=== PATIENT | female | born 1960 | race Caucasian/White ===

== ENCOUNTER 2021-10-29 12:38 | Emergency (ER) | payer MEDICARE, SELFPAY ==
[~2021-10-29] VITALS: Ht 144.8 cm; Wt 49.9 kg
[~2021-10-29 12:38] MED LIST: ALPR0.5T PO; ASCO500T20 PO; CALC-1155 PO; CEL20 PO; COLL90OI2 TP; CYCL10TA24 PO; FURO-149 PO; GABA-531 PO; METO25TA6 PO; MORP30TA59 PO; MULT-1117 PO; NORT10CA PO; OMEP20CA15 PO; POTA-80 PO; PRED10TA PO; SIMV10TA97 PO; TRAM50TA92 PO; WARF3TAB PO; WARF4TAB2 PO; ZIN220 PO
--- NOTE | 2021-10-29 12:52 | NUR ---
Patient to ED at this time with c/o left lower extremity pain for four days. patient lives at home with [facility] services. states she developed left hip pain that shoots down leg intermittently. patient has history of taking morphine and norco. [facility] notified emt that recently decreased her pain medications and patient was not aware of this. Patient's pain is 10/10 at this time. waiting to see
[2021-10-29] MEDS ORDERED: HYDROmorphone 1 MG/ML INJ. CARTRIDGE IM ONE (13:15)
[2021-10-29 13:25] VITALS: BP_SYST 142
--- NOTE | 2021-10-29 13:47 | NUR ---
xray completed at this time. dilaudid 1mg IM administered
--- NOTE | 2021-10-29 14:16 | NUR ---
Patient denies pain at this time. comfort measures implemented
--- NOTE | 2021-10-29 14:39 | NUR ---
at bedside to speak with
[2021-10-29 16:39] LABS: HEMATOCRIT 33.3 % (36-48); HEMOGLOBIN 10.3 g/dL (12.0-16.0); MEAN CORPUSCULAR HEMOGLOBIN 21 pg (27-31); MEAN CORPUSCULAR HGB CONC 31 % (32-36); MEAN CORPUSCULAR VOLUME 67 fL (79.0-98.0); PLATELET COUNT (AUTO) 175 K/uL (130-430); RED BLOOD CELL COUNT(AUTO) 4.95 MIL/uL (4.2-6.2); WHITE BLOOD COUNT (AUTO) 9.7 K/uL (4.8-10.8)
[2021-10-29 16:44] LABS: CALCIUM 7.9 mg/dL (8.4-11.0); CREATININE 0.48 mg/dL (0.55-1.30); POTASSIUM 3.5 mmol/L (3.5-5.1)
[2021-10-29 16:50] LABS: ALBUMIN 2.9 g/dL (3.4-4.8); TOTAL BILIRUBIN 0.3 mg/dL (0.0-1.0)
[2021-10-29 16:54] LABS: ATYPICAL LYMPHOCYTES % 15 % (0-0); BAND % (MANUAL) 0 % (0-6); BASOPHILS % (MANUAL) 0 % (0-2); EOSINOPHILS % (MANUAL) 0 % (0-7); LYMPHOCYTES % (MANUAL) 46 % (20-46); MONOCYTES % (MANUAL) 0 % (0-11)
--- NOTE | 2021-10-29 18:01 | NUR ---
Covid test collected and sent. patient condition goes unchanged, patient resting comfortably, will continue to monitor the patient. patient updated on plan of care. waiting to see surgeon
--- NOTE | 2021-10-29 18:12 | NUR ---
norvasc 10mg po given at this time for htn.
[2021-10-29] MEDS ORDERED: HYDROmorphone 1 MG/ML INJ. CARTRIDGE IVP ONE (18:15)
[2021-10-29] MEDS ORDERED: amLODIPine BESYLATE 10 MG TABLET PO ONE ×2 (18:15)
--- NOTE | 2021-10-29 18:33 | NUR ---
patient adminsitered pain meds and b/p meds at this time to clear for transport. patient states she took her lopressor this am
--- NOTE | 2021-10-29 18:49 | NUR ---
[place] at [facility],
--- NOTE | 2021-10-29 18:55 | NUR ---
Patient transported to [facility] at this time
[2021-10-29 18:58] VITALS: BP_SYST 124
--- NOTE | 2021-10-29 19:01 | NUR ---
Patient to be transferred to [facility]. Is being transferred due to higher level of care. Receiving facility has accepting physician and available space. ER physician has signed transfer form. Patient or responsible democrat has agreed to transfer and signed form. Patient belongings inventoried and will be sent with patient. Copy of nursing notes, lab reports, EKG, Physicians Orders and X-rays to be sent with patient. Report called to Claudia
== END 2021-10-29 18:58 | disposition short-term general hospital (02) ==
LOC: SED 12:38
DX: M25.551 Pain in right hip (principal); M25.552 Pain in left hip; Z20.822 Contact with and (suspected) exposure to COVID-19; Z79.899 Other long term (current) drug therapy; I10 Essential (primary) hypertension; K21.9 Gastro-esophageal reflux disease without esophagitis; F32.9 Major depressive disorder, single episode, unspecified; E78.5 Hyperlipidemia, unspecified; Z88.5 Allergy status to narcotic agent
CPT/HCPCS: 36415; 72170; 73552; 73560; 80053; 85007; 85027; 87426; 96372; 96374; 99285; J1170

== ENCOUNTER 2022-11-14 13:18 | Emergency (ER) | payer MEDICARE ==
[~2022-11-14] VITALS: Ht 157.5 cm; Wt 59.0 kg
[2022-11-14 13:49] VITALS: BP_SYST 123
--- NOTE | 2022-11-14 13:50 | NUR ---
Patient triaged. VSS and patient appears in no acute distress at this time. Accompanied by EMT'S , awaiting available bed, and MD notified of need for MSE.
--- NOTE | 2022-11-14 16:09 | NUR ---
PT COMES IN WITH RT ARM BRUISING PURPLE/BLUE IN COLOR. STATES SHE HAD BLOOD DRAW 3 DAYS AGO ROUTINE WORKUP BECAUSE SHE TAKES COUMADIN QDAY. PT DENIES ANY N/V/D. PT DENIES ANY SOB OR CP. DNEIS ANY NUMBNESS/TINGLING. +CMS.
--- NOTE | 2022-11-14 17:24 | NUR ---
Patient given written and verbal discharge instructions and verbalizes understanding. ER MD discussed with patient the results and treatment provided. Patient in stable condition. ID arm band removed.
[2022-11-14 17:29] VITALS: BP_SYST 123
== END 2022-11-14 17:24 | disposition home or self-care (01) ==
LOC: SED 13:18
DX: S40.021A Contusion of right upper arm, initial encounter (principal); K21.9 Gastro-esophageal reflux disease without esophagitis; I10 Essential (primary) hypertension; E78.5 Hyperlipidemia, unspecified; Z88.5 Allergy status to narcotic agent; Z79.899 Other long term (current) drug therapy; X58.XXXA Exposure to other specified factors, initial encounter; Y93.89 Activity, other specified; Y92.89 Other specified places as the place of occurrence of the external cause; Y99.8 Other external cause status
CPT/HCPCS: 99283

== ENCOUNTER 2023-03-08 12:37 | Emergency (ER) | payer MEDICARE ==
[~2023-03-08] VITALS: Ht 142.2 cm; Wt 68.0 kg
[2023-03-08 12:43] VITALS: BP_SYST 143
[2023-03-08] MEDS ORDERED: cefTRIAXone 1 GM IVPB PREMIX 50 ML IV ONE (12:45)
[2023-03-08] MEDS ORDERED: NS 1000 ML IV.SOLN IV ONE (12:45)
--- NOTE | 2023-03-08 13:00 | NUR ---
62 yo/f w biba from home w c/o increasing fatigue, sob and fevers x3 days. pt alert but sob, drowsy and fatigue will not answer all questions, assessment limited at this time. pt tachycardic and tachypneic otherwise vss. denies chest pain, abdominal pain, n/v/d. pmh: htn, thyroid dz, copd, dm, asthma
[2023-03-08 13:06] LABS: BASOPHILS # (AUTO) 0.1 K/uL (0.0-0.2); BASOPHILS % (AUTO) 0.6 % (0.0-2.0); EOSINOPHILS % (AUTO) 0.4 % (0.0-4.0); HEMATOCRIT 36.3 % (36-48); LYMPHOCYTES # (AUTO) 3.7 K/uL (1.0-5.5); LYMPHOCYTES % (AUTO) 28.3 % (20.5-51.5); MEAN CORPUSCULAR HEMOGLOBIN 21 pg (27-31); MEAN CORPUSCULAR HGB CONC 30 % (32-36); MEAN CORPUSCULAR VOLUME 69 fL (79.0-98.0); MONOCYTES # (AUTO) 0.4 K/uL (0.0-1.0); MONOCYTES % (AUTO) 3.3 % (1.7-9.3); NEUTROPHILS # (AUTO) 8.9 K/uL (1.8-7.7); NEUTROPHILS % (AUTO) 67.4 % (40.0-70.0); PLATELET COUNT (AUTO) 211 K/uL (130-430); RED BLOOD CELL COUNT(AUTO) 5.24 MIL/uL (4.2-6.2); RED CELL DISTRIBUTION WIDTH 19.8 % (9.0-15.0); WHITE BLOOD COUNT (AUTO) 13.2 K/uL (4.8-10.8)
[2023-03-08 13:39] LABS: ALANINE AMINOTRANSFERASE 25 U/L (12-78); ALBUMIN 3.4 g/dL (3.4-4.8); ANION GAP 11 (5-15); ASPARTATE AMINOTRANSFERASE 17 U/L (10-37); CALCIUM 8.5 mg/dL (8.4-11.0); CHLORIDE 100 mmol/L (98-107); CREATININE 0.56 mg/dL (0.55-1.30); GFR AFRICAN AMERICAN 140 mL/min (>90); GLUCOSE 94 mg/dL (74-106); TOTAL BILIRUBIN 0.7 mg/dL (0.0-1.0); UREA NITROGEN, BLOOD 12 mg/dL (8-21)
[2023-03-08] MEDS ORDERED: POTASSIUM CHLORIDE 20 MEQ TAB.PRT.SR PO ONE (14:00)
[2023-03-08 14:21] LABS: BILIRUBIN,URINE NEGATIVE (NEGATIVE); BLOOD, URINE NEGATIVE (NEGATIVE); COLOR,URINE YELLOW (YELLOW); GLUCOSE,URINE NEGATIVE (NEGATIVE); KETONES,URINE NEGATIVE (NEGATIVE); LEUKOCYTE ESTERASE ,URINE 2+ (NEGATIVE); NITRITE, URINE POSITIVE (NEGATIVE); PROTEIN URINE NEGATIVE (NEGATIVE); UROBILINOGEN,URINE 0.2 (0.2-1.0)
[2023-03-08 14:25] LABS: CLARITY/URINE HAZY (CLEAR)
[2023-03-08 14:26] LABS: BACTERIA,URINE MANY /HPF (None Seen); MUCUS,URINE None Seen /LPF (None Seen); RBC,URINE 0-3 /HPF (0-3); WBC,URINE 20-50 /HPF (0-3)
--- NOTE | 2023-03-08 14:29 | NUR ---
pt o2 sat 88% on RA placed on 2L nc O2 sat now 95%
--- NOTE | 2023-03-08 15:02 | NUR ---
pt reports mild leg pain BL knees, reports its chronic, assisted to reposition for comfort pt reports feeling pain relief w positioning.
[2023-03-08] MEDS ORDERED: METOPROLOL TARTRATE 25 MG TABLET PO ONE (15:30)
--- NOTE | 2023-03-08 16:16 | NUR ---
pt resting w eyes closed, breathing even and unlabred, nad noted
--- NOTE | 2023-03-08 18:26 | NUR ---
ETA 1930, VERIFIES TRANSPORT COAL SCREENER. FOR REPORT [phone] TO BP ROOM 4007
--- NOTE | 2023-03-08 18:38 | NUR ---
Patient to be transferred to [facility] [phone]. Is being transferred due to higher level of care. Receiving facility has accepting physician and available space. ER physician has signed transfer form. Patient or responsible constitution party has agreed to transfer and signed form. Patient belongings inventoried and will be sent with patient. Copy of nursing notes, lab reports, EKG, Physicians Orders and X-rays to be sent with patient. Report called to mar piña at receiving facility. Receiving physician is rick. [facility] ambulance service has been called for transfer. ETA is 1930.
--- NOTE | 2023-03-08 19:31 | NUR ---
PT REPORT TO SANTIAGO ORONA.
--- NOTE | 2023-03-08 19:33 | NUR ---
MICHAEL RICCI TO BE UPDATED WHEN PT IS TX TO [facility].
[2023-03-08] MEDS ORDERED: DEXTROSE 50% JECT 50 ML DISP.SYRIN IVP ONE (20:00)
[2023-03-08] MEDS ORDERED: DEXTROSE 50% JECT 50 ML DISP.SYRIN ONE (20:05)
--- NOTE | 2023-03-08 20:17 | NUR ---
ACCU-CHECK 154 PT READIED FOR DC
--- NOTE | 2023-03-08 20:25 | NUR ---
Note undone in ED - 03/08/23 at 2025 by [email or web address] Patient to be transferred to [place]. Is being transferred due to higher level of care. Receiving facility has accepting physician and available space. ER physician has signed transfer form. Patient or responsible green party has agreed to transfer and signed form. Patient belongings inventoried and will be sent with patient. Copy of nursing notes, lab reports, EKG, Physicians Orders and X-rays to be sent with patient. Report called to KWAKU LIU at receiving facility. ambulance service has been called for transfer.
--- NOTE | 2023-03-08 20:26 | NUR ---
PT TRANSFERED TO [facility]. PT VSS UPON TRANSFER. PT VERBALIZED UNDERSTANDING OF TRANSFER.
[2023-03-08 21:14] VITALS: BP_SYST 141
== END 2023-03-08 20:26 | disposition short-term general hospital (02) ==
LOC: SED 12:37
DX: N39.0 Urinary tract infection, site not specified (principal); I48.91 Unspecified atrial fibrillation; R50.9 Fever, unspecified; R53.1 Weakness; I11.0 Hypertensive heart disease with heart failure; I50.9 Heart failure, unspecified; K21.9 Gastro-esophageal reflux disease without esophagitis; Z88.5 Allergy status to narcotic agent; Z79.899 Other long term (current) drug therapy; Z20.822 Contact with and (suspected) exposure to COVID-19
CPT/HCPCS: 99285; 96365; 71045; 87426; 80053; 81000; 85025; 87040; 87086; 84484; 36415; 93005; 83605; 87804 ×2; J0696

== ENCOUNTER 2023-07-09 14:34 | Emergency (ER) | payer MEDICARE ==
[~2023-07-09] VITALS: Ht 157.5 cm; Wt 59.9 kg
[2023-07-09 14:50] VITALS: BP_SYST 101; PULSE 82; RESP 18; TEMP 97.8; O2SAT 96
[2023-07-09] MEDS ORDERED: NACL 0.9% 1,000 ML IV ONE ×2 (15:15→18:00)
[2023-07-09 16:12] LABS: HEMATOCRIT 32.6 % (36-48); HEMOGLOBIN 10.1 g/dL (12.0-16.0); MEAN CORPUSCULAR HEMOGLOBIN 21 pg (27-31); MEAN CORPUSCULAR HGB CONC 31 % (32-36); MEAN CORPUSCULAR VOLUME 67 fL (79.0-98.0); PLATELET COUNT (AUTO) 261 K/uL (130-430); RED BLOOD CELL COUNT(AUTO) 4.84 MIL/uL (4.2-6.2); RED CELL DISTRIBUTION WIDTH 21.3 % (9.0-15.0); WHITE BLOOD COUNT (AUTO) 18.6 K/uL (4.8-10.8)
[2023-07-09 16:13] LABS: ALANINE AMINOTRANSFERASE 16 U/L (12-78); ALBUMIN 2.9 g/dL (3.4-4.8); ANION GAP 9 (5-15); ASPARTATE AMINOTRANSFERASE 13 U/L (10-37); CARBON DIOXIDE 32 mmol/L (23-29); CHLORIDE 100 mmol/L (98-107); CREATININE 1.03 mg/dL (0.55-1.30); GFR AFRICAN AMERICAN 69 mL/min (>90); GLUCOSE 141 mg/dL (74-106); SODIUM SERUM 141 mmol/L (136-145); TOTAL BILIRUBIN 0.5 mg/dL (0.0-1.0); TOTAL PROTEIN, SERUM 6.6 g/dL (6.4-8.3); UREA NITROGEN, BLOOD 15 mg/dL (8-21)
[2023-07-09 16:15] LABS: GFR NON AFRICAN-AMERICAN 57 mL/min (>90)
[2023-07-09 16:17] LABS: POTASSIUM 2.9 mmol/L (3.5-5.1)
[2023-07-09 16:20] LABS: INFLUENZA TYPE A Negative (NEGATIVE); INFLUENZA TYPE B NEGATIVE (NEGATIVE)
[2023-07-09] MEDS ORDERED: POTASSIUM CHLORIDE 20 MEQ TAB.PRT.SR PO ONE (16:30)
[2023-07-09] MEDS ORDERED: KCL 20 mEq in 100 mL (PREMIX) 100 ML IV ONE (16:30)
[2023-07-09 16:37] LABS: PHOSPHORUS 5.2 mg/dL (2.7-4.5)
[2023-07-09] MEDS ORDERED: cefTRIAXone 1 GM in D5W 50 ML IV ONE (17:15)
[2023-07-09] MEDS ORDERED: AZITHROMYCIN 500 MG in NS 250 ML IV ONE (17:15)
[2023-07-09 17:30] LABS: BAND % (MANUAL) 1 % (0-6); BASOPHILS % (MANUAL) 0 % (0-2); EOSINOPHILS % (MANUAL) 0 % (0-7); LYMPHOCYTES % (MANUAL) 24 % (20-46); MONOCYTES % (MANUAL) 2 % (0-11); PLATELET ESTIMATE ADEQUATE (ADEQUATE)
[2023-07-09 17:31] LABS: ANISOCYTOSIS 2+; HYPOCHROMASIA 1+; OVALOCYTES MODERATE
[2023-07-09] MEDS ORDERED: cefTRIAXone 1 GM VIAL ONE (18:10)
[2023-07-09] MEDS ORDERED: AZITHROMYCIN 500 MG/VIAL (ZITHROMAX) IV ONE (18:27)
[2023-07-09 19:43] LABS: BILIRUBIN,URINE NEGATIVE (NEGATIVE); COLOR,URINE YELLOW (YELLOW); GLUCOSE,URINE NEGATIVE (NEGATIVE); KETONES,URINE NEGATIVE (NEGATIVE); LEUKOCYTE ESTERASE ,URINE 1+ (NEGATIVE); NITRITE, URINE NEGATIVE (NEGATIVE); PROTEIN URINE 1+ (NEGATIVE); UROBILINOGEN,URINE 0.2 (0.2-1.0)
[2023-07-09 19:48] LABS: BLOOD, URINE TRACE (NEGATIVE); CLARITY/URINE HAZY (CLEAR)
[2023-07-09 21:03] LABS: BACTERIA,URINE MANY /HPF (None Seen)
[2023-07-09 21:15] VITALS: BP_SYST 106; PULSE 90; RESP 18; TEMP 98.7; O2SAT 99
== END 2023-07-09 21:06 | disposition short-term general hospital (02) ==
LOC: SED 14:34
DX: J18.1 Lobar pneumonia, unspecified organism (principal); R09.02 Hypoxemia; R55 Syncope and collapse; E87.6 Hypokalemia; R53.1 Weakness; R07.9 Chest pain, unspecified; I11.0 Hypertensive heart disease with heart failure; I50.9 Heart failure, unspecified; K21.9 Gastro-esophageal reflux disease without esophagitis; Z88.5 Allergy status to narcotic agent; Z79.899 Other long term (current) drug therapy; Z20.822 Contact with and (suspected) exposure to COVID-19
CPT/HCPCS: 99291; 96365; 93971; 71045; 96361; 96366; 87426; 85027; 80053; 81001; 82962; 83880; 83735; 84100; 85007; 87040; 87086; 84484; 36415; 96368; 83605; 87804 ×2; 81000; 81015; J0456; J0696; J3480; J7030; 93005

== ENCOUNTER 2023-11-14 02:50 | Inpatient (IN) | payer MEDICARE ==
[~2023-11-14] VITALS: Ht 149.9 cm; Wt 60.3 kg
[2023-11-14] VITALS (7 sets, daily range): BP systolic 139–169; PULSE 60–97; RESP 14–20; TEMP 97–98.2; O2SAT 93–100
[2023-11-14] MEDS: IPRATROPIUM/ALBUTEROL SULFATE 3 ML AMPUL.NEB (DUONEB) INH ONE (03:39)
[2023-11-14 04:01] LABS: ANION GAP 9 (5-15); BASOPHILS % (AUTO) 0.3 % (0.0-2.0); CALCIUM 8.8 mg/dL (8.4-11.0); CARBON DIOXIDE 27 mmol/L (23-29); CHLORIDE 108 mmol/L (98-107); CREATININE 0.54 mg/dL (0.55-1.30); EOSINOPHILS % (AUTO) 0.4 % (0.0-4.0); GFR AFRICAN AMERICAN 146 mL/min (>90); GLUCOSE 134 mg/dL (74-106); HEMOGLOBIN 8.3 g/dL (12.0-16.0); LYMPHOCYTES # (AUTO) 6.7 K/uL (1.0-5.5); LYMPHOCYTES % (AUTO) 56.5 % (20.5-51.5); MEAN CORPUSCULAR HEMOGLOBIN 19 pg (27-31); MEAN CORPUSCULAR HGB CONC 30 % (32-36); MEAN CORPUSCULAR VOLUME 63 fL (79.0-98.0); MONOCYTES # (AUTO) 0.7 K/uL (0.0-1.0); MONOCYTES % (AUTO) 5.6 % (1.7-9.3); NEUTROPHILS # (AUTO) 4.4 K/uL (1.8-7.7); NEUTROPHILS % (AUTO) 37.2 % (40.0-70.0); PLATELET COUNT (AUTO) 216 K/uL (130-430); POTASSIUM 3.2 mmol/L (3.5-5.1); RED CELL DISTRIBUTION WIDTH 19.9 % (9.0-15.0); SODIUM SERUM 144 mmol/L (136-145); UREA NITROGEN, BLOOD 20 mg/dL (8-21); WHITE BLOOD COUNT (AUTO) 11.9 K/uL (4.8-10.8)
[2023-11-14] MEDS: methylPREDNISolone SOD SUCC/PF 62.5 MG/ML VIAL IVP ONE (04:03)
[2023-11-14 04:05] LABS: HEMATOCRIT 24.9 % (36-48); RED BLOOD CELL COUNT(AUTO) 2.49 MIL/uL (4.2-6.2)
[2023-11-14 04:06] LABS: GFR NON AFRICAN-AMERICAN 120 mL/min (>90)
[2023-11-14 04:10] LABS: BLOOD GAS PCO2 35.1 mmHg (35.0-45.0); BLOOD GAS PH 7.434 (7.350-7.450)
[2023-11-14 04:11] LABS: ABG O2 SAT% ESTIMATE 85.2 % (94.0-100.0); BLOOD GAS BASE EXCESS -0.7 mmol/L (-3.0-3.0); BLOOD GAS PO2 47.7 mmHg (75.0-100.0)
[2023-11-14 04:12] LABS: ALLEN'S TEST POSITIVE (P)
[2023-11-14 04:14] LABS: INR 2.1 (0.8-1.2); PROTHROMBIN TIME 20.7 SECS (9.5-12.5)
[2023-11-14] MEDS ORDERED: POTASSIUM CHLORIDE 20 MEQ/PKT PACKET PO ONE (04:30)
[2023-11-14 04:40] LABS: INFLUENZA TYPE A Negative (NEGATIVE)
[2023-11-14 04:42] LABS: INFLUENZA TYPE B POSITIVE (NEGATIVE)
[2023-11-14] MEDS: POTASSIUM CHLORIDE 20 MEQ TABLET.ER PO ONE (05:19)
[2023-11-14] MEDS: FUROSEMIDE 40 MG/4 ML VIAL IVP ONE (05:26)
[2023-11-14] MEDS: CEFEPIME 1 GM in D5W 50 ML IV ONE (05:59)
[2023-11-14] MEDS ORDERED: FERR-69 PO (09:30)
[2023-11-14] MEDS ORDERED: ROSU20TA73 PO (09:30)
[2023-11-14] MEDS ORDERED: HYDR-3927 PO (09:30)
[2023-11-14] MEDS ORDERED: BISO5TAB15 PO (09:35)
[2023-11-14] MEDS ORDERED: DULO20CA PO (09:35)
[2023-11-14] MEDS ORDERED: PRED5TAB PO (09:35)
[2023-11-14] MEDS ORDERED: NALO4SPR NS (09:35)
[2023-11-14] MEDS ORDERED: WARF-66 PO (09:35)
[2023-11-14] MEDS ORDERED: CALMO120 TP (09:35)
[2023-11-14] MEDS ORDERED: MAGNESIUM SULFATE 50 ML IV PRN (10:00)
[2023-11-14] MEDS ORDERED: ONDANSETRON HCL 4 MG/2 ML VIAL IVP PRN (10:00)
[2023-11-14] MEDS ORDERED: MUPIROCIN 2% TOPICAL OINTMENT 22 GM NS PRN (10:00)
[2023-11-14] MEDS ORDERED: ACETAMINOPHEN 500 MG TABLET PO PRN (10:00)
[2023-11-14] MEDS ORDERED: IPRATROPIUM/ALBUTEROL SULFATE 3 ML AMPUL.NEB (DUONEB) INH PRN (10:00)
[2023-11-14] MEDS ORDERED: POTASSIUM CHLORIDE 20 MEQ TABLET.ER PO PRN (10:00)
[2023-11-14] MEDS ORDERED: DOCUSATE SODIUM 100 MG CAPSULE PO PRN (10:00)
[2023-11-14] MEDS: POTASSIUM CHLORIDE 40 MEQ in 0.45% NS 250 ML IV SCH (12:25)
[2023-11-14] MEDS: PIPERACILLIN/TAZO 3.375 GM in NS 50 ML IV SCH (12:26)
[2023-11-14] MEDS: OSELTAMIVIR PHOSPHATE 75 MG CAPSULE PO ONE (12:36)
[2023-11-14] MEDS ORDERED: AZITHROMYCIN 500 MG in NS 250 ML IV SCH (14:30)
[2023-11-14] MEDS ORDERED: WARF2.5T83 PO (14:32)
[2023-11-14] MEDS: AZITHROMYCIN 500 MG in NS 250 ML IV ONE (16:54)
[2023-11-14] MEDS: WARFARIN SODIUM 2.5 MG TABLET PO SCH (17:56)
[2023-11-14] MEDS ORDERED: HEPARIN SODIUM,PORCINE 5,000 UNITS/ML VIAL SUBCUT SCH (21:00)
[2023-11-14 21:15] LABS: POTASSIUM 5.1 mmol/L (3.5-5.1)
[2023-11-14 21:16] LABS: CALCIUM 8.4 mg/dL (8.4-11.0); CREATININE 0.57 mg/dL (0.55-1.30)
[2023-11-14] MEDS: OSELTAMIVIR PHOSPHATE 75 MG CAPSULE PO SCH (21:17)
[2023-11-14] MEDS: FUROSEMIDE 40 MG/4 ML VIAL IVP SCH (21:18)
[2023-11-14 21:20] LABS: TOTAL BILIRUBIN 0.5 mg/dL (0.0-1.0)
[2023-11-15 00:25] VITALS: BP_SYST 141; PULSE 98; RESP 20; TEMP 96.7; O2SAT 100
[2023-11-15 04:00] VITALS: BP_SYST 128; PULSE 86; RESP 20; TEMP 97.7; O2SAT 99
[2023-11-15 06:56] LABS: HEMATOCRIT 24.9 % (36-48); HEMOGLOBIN 7.5 g/dL (12.0-16.0); MEAN CORPUSCULAR HEMOGLOBIN 19 pg (27-31); MEAN CORPUSCULAR HGB CONC 30 % (32-36); MEAN CORPUSCULAR VOLUME 63 fL (79.0-98.0); PLATELET COUNT (AUTO) 194 K/uL (130-430); RED BLOOD CELL COUNT(AUTO) 3.92 MIL/uL (4.2-6.2); RED CELL DISTRIBUTION WIDTH 19.7 % (9.0-15.0); WHITE BLOOD COUNT (AUTO) 9.4 K/uL (4.8-10.8)
[2023-11-15 07:02] LABS: INR 2.2 (0.8-1.2); PROTHROMBIN TIME 22.3 SECS (9.5-12.5)
[2023-11-15 07:05] LABS: CALCIUM 8.3 mg/dL (8.4-11.0); CREATININE 0.46 mg/dL (0.55-1.30); POTASSIUM 4.6 mmol/L (3.5-5.1)
[2023-11-15 07:30] LABS: TOTAL IRON BIND. CAPACITY 294 ug/dL (250-450)
[2023-11-15 08:00] VITALS: BP_SYST 91; PULSE 91; RESP 18; TEMP 97.2; O2SAT 99
[2023-11-15 08:03] LABS: BARBITURATE, URINE NEGATIVE (NEG <=200); BENZODIAZEPINE, URINE POSITIVE (NEG <=150); CANNABINOID, URINE NEGATIVE (NEG <=50); COCAINE, URINE NEGATIVE (NEG <=150); METHAMPHETAMINES SCREEN,URINE NEGATIVE (NEG <=500); PHENCYCLIDINE SCREEN,URINE NEGATIVE (NEG <=25); URINE AMPHETAMINE NEGATIVE (NEG <=500); URINE METHADONE NEGATIVE (NEG <=200)
[2023-11-15 08:04] LABS: OPIATE, URINE POSITIVE (NEG <=100); UR TRICYCLIC ANTIDEPRESSANTS NEGATIVE (NEG <=300); URINE OXYCODONE SCREEN NEGATIVE (NEG <=100)
[2023-11-15 08:28] LABS: LYMPHOCYTES % (MANUAL) 42 % (20-46); MONOCYTES % (MANUAL) 10 % (0-11)
[2023-11-15 08:29] LABS: ATYPICAL LYMPHOCYTES % 11 % (0-0); HYPOCHROMASIA 3+; PLATELET ESTIMATE ADEQUATE (ADEQUATE)
[2023-11-15] MEDS: FERROUS SULFATE 325 MG TABLET.DR PO SCH (09:00)
[2023-11-15] MEDS: POTASSIUM CHLORIDE 20 MEQ TABLET.ER PO SCH (09:00)
[2023-11-15] MEDS: ATENOLOL 50 MG TABLET (TENORMIN) PO SCH (09:23)
[2023-11-15] MEDS: CITALOPRAM HYDROBROMIDE 20 MG TABLET PO SCH (09:23)
[2023-11-15] MEDS: AZITHROMYCIN 500 MG in NS 250 ML IV SCH (11:26)
[2023-11-15 11:53] VITALS: BP_SYST 138; PULSE 99; RESP 19; TEMP 98.4; O2SAT 100
[2023-11-15] MEDS ORDERED: HYDROcodone/ACETAMIN 5-325 MG TAB (NORCO/ VICODIN) PO PRN (15:00)
[2023-11-15] MEDS ORDERED: MENTHOL/ZINC OXIDE 113 GM OINT. TP PRN (16:00)
[2023-11-15 17:12] VITALS: BP_SYST 109; PULSE 83; RESP 19; TEMP 97.8; O2SAT 97
[2023-11-18 21:06] LABS: MYCOPLASMA PNEUMONIAE IgM <770 U/mL (0-769)
== END 2023-11-15 19:09 | disposition short-term general hospital (02) | DRG 871 ==
LOC: SED 02:50 → STU 09:10 → SMU 10:40 → STU 12:17
PROVIDERS: ADMIT General Practice; ATTEND General Practice
DX: A41.9 Sepsis, unspecified organism (principal); I50.43 Acute on chronic combined systolic (congestive) and diastolic (congestive) heart failure; J69.0 Pneumonitis due to inhalation of food and vomit; J96.01 Acute respiratory failure with hypoxia; J44.0 Chronic obstructive pulmonary disease with (acute) lower respiratory infection; F11.20 Opioid dependence, uncomplicated; Z20.822 Contact with and (suspected) exposure to COVID-19; D50.9 Iron deficiency anemia, unspecified; M79.7 Fibromyalgia; F32.A Depression, unspecified; Z96.651 Presence of right artificial knee joint; K21.9 Gastro-esophageal reflux disease without esophagitis; I11.0 Hypertensive heart disease with heart failure; M06.9 Rheumatoid arthritis, unspecified; M81.0 Age-related osteoporosis without current pathological fracture; J10.1 Influenza due to other identified influenza virus with other respiratory manifestations; D63.8 Anemia in other chronic diseases classified elsewhere; J44.9 Chronic obstructive pulmonary disease, unspecified; E87.6 Hypokalemia; Z86.718 Personal history of other venous thrombosis and embolism; Z79.52 Long term (current) use of systemic steroids; Z79.01 Long term (current) use of anticoagulants; Z74.01 Bed confinement status; Z88.5 Allergy status to narcotic agent; Z99.3 Dependence on wheelchair
CPT/HCPCS: 36415; 36600; 71045; 71275; 80048; 80053; 80307; 82550; 82803; 83037; 83540; 83550; 83735; 83880; 84484; 85007; 85025; 85027; 85610; 85730; 86713; 86738; 87040; 93005; 93306; 94640; 94760; 96374; 96375; 99291; G0378; G9035; J0456; J0696; J1940; J2543; J2930; J3480; J7050; J7060; Q9967

== ENCOUNTER 2023-11-17 10:41 | Emergency (ER) | payer MEDICARE ==
[~2023-11-17] VITALS: Ht 149.9 cm; Wt 62.6 kg
[2023-11-17 10:41] VITALS: BP_SYST 130; PULSE 102; RESP 19; TEMP 97.2; O2SAT 97
[~2023-11-17 10:41] MED LIST changes: -ALPR0.5T PO; +BISO5TAB15 PO; +CALMO120 TP; -CEL20 PO; -CYCL10TA24 PO; +FERR-69 PO; -FURO-149 PO; -GABA-531 PO; +HYDR-3927 PO; -METO25TA6 PO; +NALO4SPR NS; -NORT10CA PO; -POTA-80 PO; -PRED10TA PO; +PRED5TAB PO; +ROSU20TA73 PO; -SIMV10TA97 PO; -TRAM50TA92 PO; +WARF2.5T83 PO; -WARF3TAB PO; -WARF4TAB2 PO
[2023-11-17 11:29] LABS: HEMATOCRIT 34.4 % (36-48); HEMOGLOBIN 10.2 g/dL (12.0-16.0); MEAN CORPUSCULAR HEMOGLOBIN 19 pg (27-31); MEAN CORPUSCULAR HGB CONC 30 % (32-36); MEAN CORPUSCULAR VOLUME 63 fL (79.0-98.0); PLATELET COUNT (AUTO) 251 K/uL (130-430); RED BLOOD CELL COUNT(AUTO) 5.48 MIL/uL (4.2-6.2); RED CELL DISTRIBUTION WIDTH 20.1 % (9.0-15.0); WHITE BLOOD COUNT (AUTO) 14.9 K/uL (4.8-10.8)
[2023-11-17 11:37] LABS: CREATININE 0.69 mg/dL (0.55-1.30); POTASSIUM 3.1 mmol/L (3.5-5.1)
[2023-11-17 11:44] LABS: ALBUMIN 3.3 g/dL (3.4-4.8); BILIRUBIN,DIRECT 0.2 mg/dL (0.0-0.3); TOTAL BILIRUBIN 0.8 mg/dL (0.0-1.0); TOTAL PROTEIN, SERUM 6.6 g/dL (6.4-8.3)
[2023-11-17 11:53] LABS: INR 2.8 (0.8-1.2); PROTHROMBIN TIME 27.3 SECS (9.5-12.5)
[2023-11-17 12:24] LABS: ATYPICAL LYMPHOCYTES % 18 % (0-0); BASOPHILS % (MANUAL) 0 % (0-2); EOSINOPHILS % (MANUAL) 2 % (0-7); LYMPHOCYTES % (MANUAL) 33 % (20-46); MONOCYTES % (MANUAL) 8 % (0-11)
[2023-11-17 12:25] LABS: ANISOCYTOSIS 1+; HYPOCHROMASIA 2+; OVALOCYTES FEW; PLATELET ESTIMATE ADEQUATE (ADEQUATE); TARGET CELLS FEW
[2023-11-17] MEDS ORDERED: PIPERACILLIN/TAZOBACTAM 3.375 GM/VIAL (ZOSYN) IV ONE (14:15)
[2023-11-17] MEDS: POTASSIUM CHLORIDE 20 MEQ/PKT PACKET PO ONE (15:08)
[2023-11-17] MEDS: PIPERACILLIN/TAZO 3.375 GM in NS 50 ML IV ONE (15:08)
[2023-11-17] MEDS: FUROSEMIDE 20 MG/2 ML VIAL IVP ONE (15:08)
[2023-11-17 15:58] LABS: BILIRUBIN,URINE NEGATIVE (NEGATIVE); BLOOD, URINE NEGATIVE (NEGATIVE); CLARITY/URINE CLEAR (CLEAR); COLOR,URINE YELLOW (YELLOW); GLUCOSE,URINE TRACE (NEGATIVE); KETONES,URINE TRACE (NEGATIVE); LEUKOCYTE ESTERASE ,URINE NEGATIVE (NEGATIVE); NITRITE, URINE NEGATIVE (NEGATIVE); PROTEIN URINE NEGATIVE (NEGATIVE)
[2023-11-17 16:16] LABS: RBC,URINE 0-3 /HPF (0-3); WBC,URINE 0-3 /HPF (0-3)
[2023-11-17 16:17] LABS: BACTERIA,URINE FEW /HPF (None Seen)
[2023-11-17 17:33] VITALS: BP_SYST 152; PULSE 89; RESP 16; TEMP 97.8; O2SAT 95
== END 2023-11-17 17:29 | disposition short-term general hospital (02) ==
LOC: SED 10:41
DX: K42.9 Umbilical hernia without obstruction or gangrene (principal); K44.9 Diaphragmatic hernia without obstruction or gangrene; I11.0 Hypertensive heart disease with heart failure; I50.9 Heart failure, unspecified; D72.820 Lymphocytosis (symptomatic); E87.6 Hypokalemia; M48.56XD Collapsed vertebra, not elsewhere classified, lumbar region, subsequent encounter for fracture with routine healing; K21.9 Gastro-esophageal reflux disease without esophagitis; E07.9 Disorder of thyroid, unspecified; M19.90 Unspecified osteoarthritis, unspecified site; E78.5 Hyperlipidemia, unspecified; Z88.6 Allergy status to analgesic agent
CPT/HCPCS: 99285; 74176; 96365; 71045; 96375; 87426; 85027; 80076; 80048; 81000; 81001; 83880; 83690; 85007; 85610; 85730; 84484; 36415; 93005; 81015; J2543; J1940

== ENCOUNTER 2023-11-23 13:54 | Emergency (ER) | payer MEDICARE ==
[~2023-11-23] VITALS: Ht 149.9 cm; Wt 56.7 kg
[~2023-11-23 13:54] MED LIST changes: -COLL90OI2 TP
[2023-11-23 14:07] VITALS: BP_SYST 100; PULSE 100; RESP 16; TEMP 97.4; O2SAT 97
[2023-11-23] MEDS: KETOROLAC TROMETHAMINE 30 MG VIAL IM ONE (16:30)
[2023-11-23 21:24] VITALS: BP_SYST 106; PULSE 91; RESP 16; TEMP 97.8; O2SAT 100
== END 2023-11-23 21:28 | disposition home or self-care (01) ==
LOC: SED 13:54
DX: L89.301 Pressure ulcer of unspecified buttock, stage 1 (principal); J44.9 Chronic obstructive pulmonary disease, unspecified; E11.9 Type 2 diabetes mellitus without complications; I11.0 Hypertensive heart disease with heart failure; I50.9 Heart failure, unspecified; Z88.5 Allergy status to narcotic agent; Z79.899 Other long term (current) drug therapy
CPT/HCPCS: 99283

== ENCOUNTER 2024-01-08 11:04 | Emergency (ER) | payer MEDICARE ==
[~2024-01-08] VITALS: Ht 149.9 cm; Wt 68.0 kg
[2024-01-08 11:07] VITALS: BP_SYST 120; PULSE 73; RESP 18; TEMP 97.5; O2SAT 93
[2024-01-08 12:30] LABS: BASOPHILS % (AUTO) 0.4 % (0.0-2.0); EOSINOPHILS % (AUTO) 0.4 % (0.0-4.0); HEMATOCRIT 26.2 % (36-48); HEMOGLOBIN 8.1 g/dL (12.0-16.0); LYMPHOCYTES # (AUTO) 3.6 K/uL (1.0-5.5); LYMPHOCYTES % (AUTO) 35.8 % (20.5-51.5); MEAN CORPUSCULAR HEMOGLOBIN 21 pg (27-31); MEAN CORPUSCULAR HGB CONC 31 % (32-36); MEAN CORPUSCULAR VOLUME 67 fL (79.0-98.0); MONOCYTES # (AUTO) 0.5 K/uL (0.0-1.0); MONOCYTES % (AUTO) 5.1 % (1.7-9.3); NEUTROPHILS # (AUTO) 5.9 K/uL (1.8-7.7); NEUTROPHILS % (AUTO) 58.3 % (40.0-70.0); PLATELET COUNT (AUTO) 216 K/uL (130-430); RED BLOOD CELL COUNT(AUTO) 3.92 MIL/uL (4.2-6.2); RED CELL DISTRIBUTION WIDTH 25.4 % (9.0-15.0); WHITE BLOOD COUNT (AUTO) 10.2 K/uL (4.8-10.8)
[2024-01-08 12:48] LABS: INR 1.8 (0.8-1.2)
[2024-01-08 12:52] LABS: ANION GAP 9 (5-15); CALCIUM 8.3 mg/dL (8.4-11.0); CARBON DIOXIDE 26 mmol/L (23-29); CHLORIDE 106 mmol/L (98-107); CREATININE 0.52 mg/dL (0.55-1.30); GFR AFRICAN AMERICAN 152 mL/min (>90); GLUCOSE 108 mg/dL (74-106); POTASSIUM 3.7 mmol/L (3.5-5.1); SODIUM SERUM 141 mmol/L (136-145); UREA NITROGEN, BLOOD 13 mg/dL (8-21)
[2024-01-08 12:53] LABS: GFR NON AFRICAN-AMERICAN 126 mL/min (>90)
[2024-01-08] MEDS: FUROSEMIDE 20 MG TABLET PO ONE (13:49)
[2024-01-08 15:44] VITALS: BP_SYST 139; PULSE 79; RESP 20; TEMP 97.8; O2SAT 93
== END 2024-01-08 15:43 | disposition left against medical advice (07) ==
LOC: SED 11:04
DX: S09.90XA Unspecified injury of head, initial encounter (principal); S39.011A Strain of muscle, fascia and tendon of abdomen, initial encounter; M24.412 Recurrent dislocation, left shoulder; M19.90 Unspecified osteoarthritis, unspecified site; D50.9 Iron deficiency anemia, unspecified; I11.0 Hypertensive heart disease with heart failure; I50.9 Heart failure, unspecified; J44.9 Chronic obstructive pulmonary disease, unspecified; E11.9 Type 2 diabetes mellitus without complications; K21.9 Gastro-esophageal reflux disease without esophagitis; E07.9 Disorder of thyroid, unspecified; E78.5 Hyperlipidemia, unspecified; M79.7 Fibromyalgia; Z88.5 Allergy status to narcotic agent; F32.A Depression, unspecified; X58.XXXA Exposure to other specified factors, initial encounter; Y93.89 Activity, other specified; Y92.89 Other specified places as the place of occurrence of the external cause; Y99.8 Other external cause status
CPT/HCPCS: 36415; 70450-TC; 71045; 72192-TC; 73030; 80048; 83880; 84484; 85025; 85610; 85730; 99284

== ENCOUNTER 2024-03-18 10:09 | Emergency (ER) | payer MEDICARE ==
[~2024-03-18] VITALS: Ht 149.9 cm; Wt 47.6 kg
[2024-03-18 10:10] VITALS: BP_SYST 143; PULSE 124; RESP 20; TEMP 97.2; O2SAT 87
[2024-03-18] MEDS: NACL 0.9% 1,000 ML IV ONE (11:10)
[2024-03-18 11:19] LABS: BASOPHILS % (AUTO) 0.5 % (0.0-2.0); EOSINOPHILS % (AUTO) 0.5 % (0.0-4.0); HEMATOCRIT 32.1 % (36-48); HEMOGLOBIN 9.9 g/dL (12.0-16.0); LYMPHOCYTES # (AUTO) 3.2 K/uL (1.0-5.5); LYMPHOCYTES % (AUTO) 33.4 % (20.5-51.5); MEAN CORPUSCULAR HEMOGLOBIN 22 pg (27-31); MEAN CORPUSCULAR HGB CONC 31 % (32-36); MEAN CORPUSCULAR VOLUME 72 fL (79.0-98.0); MONOCYTES # (AUTO) 0.5 K/uL (0.0-1.0); MONOCYTES % (AUTO) 5.4 % (1.7-9.3); NEUTROPHILS # (AUTO) 5.8 K/uL (1.8-7.7); NEUTROPHILS % (AUTO) 60.2 % (40.0-70.0); PLATELET COUNT (AUTO) 228 K/uL (130-430); RED BLOOD CELL COUNT(AUTO) 4.44 MIL/uL (4.2-6.2); RED CELL DISTRIBUTION WIDTH 23.5 % (9.0-15.0); WHITE BLOOD COUNT (AUTO) 9.6 K/uL (4.8-10.8)
[2024-03-18 11:41] LABS: ALANINE AMINOTRANSFERASE 15 U/L (12-78); ALBUMIN 2.8 g/dL (3.4-4.8); ANION GAP 9 (5-15); ASPARTATE AMINOTRANSFERASE 18 U/L (10-37); BILIRUBIN,DIRECT 0.1 mg/dL (0.0-0.3); CALCIUM 8.6 mg/dL (8.4-11.0); CARBON DIOXIDE 23 mmol/L (23-29); CHLORIDE 105 mmol/L (98-107); CREATININE 0.65 mg/dL (0.55-1.30); GFR AFRICAN AMERICAN 118 mL/min (>90); GFR NON AFRICAN-AMERICAN 97 mL/min (>90); GLUCOSE 118 mg/dL (74-106); POTASSIUM 3.7 mmol/L (3.5-5.1); SODIUM SERUM 137 mmol/L (136-145); TOTAL BILIRUBIN 0.4 mg/dL (0.0-1.0); TOTAL PROTEIN, SERUM 6.2 g/dL (6.4-8.3); UREA NITROGEN, BLOOD 23 mg/dL (8-21)
[2024-03-18 12:34] LABS: INR 3.1 (0.8-1.2); PROTHROMBIN TIME 30.2 SECS (9.5-12.5)
[2024-03-18 14:59] VITALS: BP_SYST 158; PULSE 91; RESP 22; TEMP 97.8; O2SAT 99
== END 2024-03-18 15:01 | disposition short-term general hospital (02) ==
LOC: SED 10:09
DX: I48.20 Chronic atrial fibrillation, unspecified (principal); E86.0 Dehydration; Z20.822 Contact with and (suspected) exposure to COVID-19; R19.7 Diarrhea, unspecified; R61 Generalized hyperhidrosis; I11.0 Hypertensive heart disease with heart failure; I50.9 Heart failure, unspecified; E11.9 Type 2 diabetes mellitus without complications; K21.9 Gastro-esophageal reflux disease without esophagitis; E78.5 Hyperlipidemia, unspecified; M79.7 Fibromyalgia; F32.A Depression, unspecified; Z88.5 Allergy status to narcotic agent; Z79.899 Other long term (current) drug therapy; Z79.2 Long term (current) use of antibiotics
CPT/HCPCS: 99285; 96360; 87426; 80076; 80048; 83735; 85025; 85610; 85730; 84484; 36415; 93005; J7030